=== PATIENT | female | born 1995 | race Hispanic/Latino ===

== ENCOUNTER 2022-02-10 09:05 | Emergency (ER) | payer OTHER ==
[~2022-02-10] VITALS: Ht 154.9 cm; Wt 89.4 kg
== END 2022-02-10 09:50 | disposition home or self-care (01) ==
LOC: ER 09:12
DX: O90.89 Other complications of the puerperium, not elsewhere classified (principal); R10.9 Unspecified abdominal pain; T39.315A Adverse effect of propionic acid derivatives, initial encounter
CPT/HCPCS: 99283